=== PATIENT | female | born 1990 | race Caucasian/White ===

== ENCOUNTER 2017-09-01 19:43 | Emergency (ER) | payer OTHER ==
[~2017-09-01] VITALS: Ht 162.6 cm; Wt 70.5 kg
[~2017-09-01 19:43] MED LIST: ACET50TA PO; IBUP60TA PO; VITAPRTA PO
[2017-09-01] MEDS ORDERED: NORCOTAB PO (21:10)
[2017-09-01] MEDS ORDERED: AUGM875T28 PO (21:10)
[2017-09-01] MEDS ORDERED: AUGMENTIN 875 MG TAB PO ONE (21:15)
[2017-09-01] MEDS ORDERED: NORCO, ANEXSIA 5/325MG TABLET (HYDROcodone/ACETAMINOPHEN) PO ONE (21:15)
[2017-09-01 21:32] VITALS: BP 118/54
== END 2017-09-01 21:34 | disposition home or self-care (01) ==
LOC: M ED 19:43
DX: K04.7 Periapical abscess without sinus (principal); F17.210 Nicotine dependence, cigarettes, uncomplicated; Z86.59 Personal history of other mental and behavioral disorders

== ENCOUNTER → 2022-06-14 | Outpatient (CLI) | payer OTHER ==
[~2022-06-14] MED LIST changes: -ACET50TA PO; +AUGM875T28 PO; +HYDR-3715 PO; +IBUP600T42 PO; -IBUP60TA PO; +MAPA500T2 PO
== END ==
LOC: M LAB 17:28
PROVIDERS: ATTEND Specialist
DX: N92.6 Irregular menstruation, unspecified (principal)

== ENCOUNTER → 2022-06-17 | Outpatient (CLI) | payer OTHER | LOC: M LAB 06:14 | PROVIDERS: ATTEND Specialist | DX: N92.6 Irregular menstruation, unspecified (principal) ==

== ENCOUNTER → 2022-06-21 | Outpatient (CLI) | payer OTHER | LOC: M WHC 12:23 | PROVIDERS: ATTEND Obstetrics & Gynecology | DX: Z34.91 Encounter for supervision of normal pregnancy, unspecified, first trimester (principal) ==

== ENCOUNTER → 2022-06-28 | Outpatient (CLI) | payer OTHER ==
[~2022-06-28] MED LIST changes: +IBUP-1022 PO; +OXYC1TAB23 PO
== END ==
LOC: M PLAIMG 14:33
PROVIDERS: ATTEND Specialist
DX: M79.5 Residual foreign body in soft tissue (principal)

== ENCOUNTER → 2022-07-01 | Outpatient (CLI) | payer OTHER | LOC: M LABSMTC 11:07 | PROVIDERS: ATTEND Anesthesiology | DX: Z01.812 Encounter for preprocedural laboratory examination (principal) ==

== ENCOUNTER → 2022-07-02 | Day surgery (SDC) | payer OTHER ==
[~2022-07-02] VITALS: Ht 162.6 cm; Wt 71.8 kg
[2022-07-02 15:49] VITALS: BP 126/66
[2022-07-02 16:00] LABS: HEMATOCRIT 37.6 % (36.0-47.0); HEMOGLOBIN 12.9 g/dl (12.0-15.5); MEAN CORPUSCULAR HGB CONC 34.3 g/dl (32.0-36.5); MEAN CORPUSCULAR VOLUME 93.3 fl (80.0-96.0); PLATELET COUNT, AUTOMATED 193 10^3/uL (150-450); RED BLOOD COUNT 4.03 10^6/uL (4.00-5.40); WHITE BLOOD COUNT 13.5 10^3/uL (4.0-10.0)
== END | disposition home or self-care (01) ==
LOC: M SDC 15:21
PROVIDERS: ATTEND Specialist
DX: O02.1 Missed abortion (principal); Z53.8 Procedure and treatment not carried out for other reasons

== ENCOUNTER → 2022-07-08 | Outpatient (CLI) | payer OTHER | LOC: M LABSMTC 09:16 | PROVIDERS: ATTEND Anesthesiology | DX: Z11.52 Encounter for screening for COVID-19 (principal) ==

== ENCOUNTER 2022-07-11 07:37 | Day surgery (SDC) | payer OTHER ==
[~2022-07-11] VITALS: Ht 162.6 cm; Wt 72.8 kg
[~2022-07-11 07:37] MED LIST changes: +BUPIVACAINE HCL 0.25% 10ML VIAL As Ordered ONE; +KETOROLAC 60MG 2ML VIAL As Ordered ONE; +LIDOCAINE 2% 100MG/5ML SDV (FOR ANES.) As Ordered ONE; +METOCLOPRAMIDE INJ 10MG/2ML VIAL (J2765 PER 1) As Ordered ONE; +MIDAZOLAM INJ 2MG/2ML VIAL (J2250 PER 1MG) As Ordered ONE; +ONDANSETRON 4MG 2ML VIAL As Ordered ONE; +ROCURONIUM BROMIDE 50 MG/5 ML VIAL As Ordered ONE; +dexameTHASONE 4 MG/ML 1ML VIAL (J1100 PER 1MG) As Ordered ONE; +fentaNYL 100 MCG/2 ML INJECTION As Ordered ONE; +propofoL 200 MG/20 ML VIAL As Ordered ONE
[2022-07-11] MEDS ORDERED: LR 1,000 ML IV SCH ×3 (08:05→09:40)
[2022-07-11] MEDS ORDERED: SUGAMMADEX SODIUM 500 MG/5 ML VIAL (BRIDION) As Ordered ONE (09:25)
[2022-07-11] MEDS ORDERED: MORPHINE 2 MG/ML 1ML VIAL IV PRN (09:30)
[2022-07-11] MEDS ORDERED: fentaNYL 100 MCG/2 ML INJECTION IV PRN (09:30)
[2022-07-11] MEDS ORDERED: ONDANSETRON 4MG 2ML VIAL IV PRN (09:30)
[2022-07-11] MEDS ORDERED: oxyCODONE 5MG TAB PO PRN (09:30)
[2022-07-11] MEDS ORDERED: PERCOCET 5MG/325MG TAB PO PRN (09:40)
[2022-07-11 10:05] VITALS: BP 117/66
== END 2022-07-11 10:34 | disposition home or self-care (01) ==
LOC: M SDC 07:37
PROVIDERS: ATTEND Specialist
DX: O02.1 Missed abortion (principal); T83.32XA Displacement of intrauterine contraceptive device, initial encounter; Z3A.01 Less than 8 weeks gestation of pregnancy; F17.200 Nicotine dependence, unspecified, uncomplicated
CPT/HCPCS: 49320; 59820; 88305; J1100; J1885; J2250; J2405; J2765; J3010

== ENCOUNTER → 2024-12-02 | Outpatient (CLI) | payer OTHER ==
[~2024-12-02] MED LIST changes: -BUPIVACAINE HCL 0.25% 10ML VIAL As Ordered ONE; -KETOROLAC 60MG 2ML VIAL As Ordered ONE; -LIDOCAINE 2% 100MG/5ML SDV (FOR ANES.) As Ordered ONE; -METOCLOPRAMIDE INJ 10MG/2ML VIAL (J2765 PER 1) As Ordered ONE; -MIDAZOLAM INJ 2MG/2ML VIAL (J2250 PER 1MG) As Ordered ONE; -ONDANSETRON 4MG 2ML VIAL As Ordered ONE; -ROCURONIUM BROMIDE 50 MG/5 ML VIAL As Ordered ONE; -dexameTHASONE 4 MG/ML 1ML VIAL (J1100 PER 1MG) As Ordered ONE; -fentaNYL 100 MCG/2 ML INJECTION As Ordered ONE; -propofoL 200 MG/20 ML VIAL As Ordered ONE
[2024-12-02 11:32] LABS: HEMATOCRIT 36.3 % (36.0-47.0); HEMOGLOBIN 12.3 g/dl (12.0-15.5); MEAN CORPUSCULAR HEMOGLOBIN 31.1 pg (27.0-33.0); MEAN CORPUSCULAR HGB CONC 33.9 g/dl (32.0-36.5); MEAN CORPUSCULAR VOLUME 91.9 fl (80.0-96.0); PLATELET COUNT, AUTOMATED 229 10^3/uL (150-450); RED BLOOD COUNT 3.95 10^6/uL (4.00-5.40); WHITE BLOOD COUNT 7.8 10^3/uL (4.0-10.0)
[2024-12-02 12:26] LABS: HIV 1&2 SCREEN NEGATIVE (NEGATIVE)
[2024-12-02 12:34] LABS: HEPATITIS C VIRUS ABY INDEX 0.02 INDEX (<0.8)
[2024-12-02 12:51] LABS: GC DNA AMPLIFICATION NEGATIVE (NEGATIVE)
== END ==
LOC: M LAB 08:24
PROVIDERS: ATTEND Specialist
DX: Z34.81 Encounter for supervision of other normal pregnancy, first trimester (principal)

== ENCOUNTER → 2024-12-17 | Outpatient (CLI) | payer OTHER | LOC: M LAB 07:31 | PROVIDERS: ATTEND Nurse Practitioner Family | DX: Z34.90 Encounter for supervision of normal pregnancy, unspecified, unspecified trimester (principal) ==

== ENCOUNTER → 2025-01-28 | Outpatient (CLI) | payer OTHER | LOC: M WHC 08:26 | PROVIDERS: ATTEND Nurse Practitioner Family | DX: Z34.82 Encounter for supervision of other normal pregnancy, second trimester (principal) ==

== ENCOUNTER → 2025-02-02 | Outpatient (CLI) | payer OTHER ==
[2025-02-02 09:18] LABS: TOTAL PROTEIN,RANDOM URINE 23.5 MG/DL (0.0-14.0)
[2025-02-02 09:40] LABS: CREATININE,RANDOM URINE 247.8 MG/DL
[2025-02-02 09:45] LABS: HEMATOCRIT 32.7 % (36.0-47.0); HEMOGLOBIN 11.1 g/dl (12.0-15.5); MEAN CORPUSCULAR HEMOGLOBIN 32.3 pg (27.0-33.0); MEAN CORPUSCULAR HGB CONC 33.9 g/dl (32.0-36.5); MEAN CORPUSCULAR VOLUME 95.1 fl (80.0-96.0); PLATELET COUNT, AUTOMATED 184 10^3/uL (150-450); RED BLOOD COUNT 3.44 10^6/uL (4.00-5.40); WHITE BLOOD COUNT 8.3 10^3/uL (4.0-10.0)
[2025-02-02 10:16] LABS: URIC ACID 3.6 MG/DL (3.1-7.8)
[2025-02-02 10:19] LABS: LDH LACTATE DEHYDROGENASE 138 U/L (120-246)
[2025-02-02 10:20] LABS: ALT/SGPT 22 U/L (7.0-40); AST/SGOT 16 U/L (<34); BILIRUBIN,TOTAL 0.4 MG/DL (0.3-1.2); CREATININE FOR GFR 0.56 MG/DL (0.55-1.30); GLOMERULAR FILTRATION RATE > 60.0 (>60)
== END ==
LOC: M LAB 08:12
PROVIDERS: ATTEND Nurse Practitioner Family
DX: O09.522 Supervision of elderly multigravida, second trimester (principal)

== ENCOUNTER → 2025-02-18 | Outpatient (CLI) | payer OTHER | LOC: M WHC 06:34 | PROVIDERS: ATTEND Nurse Practitioner Family | DX: O32.2XX0 Maternal care for transverse and oblique lie, not applicable or unspecified (principal); Z3A.23 23 weeks gestation of pregnancy ==

== ENCOUNTER → 2025-03-21 | Outpatient (CLI) | payer OTHER ==
[2025-03-21 17:56] LABS: GLUCOSE CHALLENGE TEST 1 HOUR 79 MG/DL (LESS THAN 140)
[2025-03-21 17:59] LABS: HEMATOCRIT 33.1 % (36.0-47.0); HEMOGLOBIN 11.1 g/dl (12.0-15.5); MEAN CORPUSCULAR HEMOGLOBIN 31.9 pg (27.0-33.0); MEAN CORPUSCULAR HGB CONC 33.5 g/dl (32.0-36.5); MEAN CORPUSCULAR VOLUME 95.1 fl (80.0-96.0); PLATELET COUNT, AUTOMATED 172 10^3/uL (150-450); RED BLOOD COUNT 3.48 10^6/uL (4.00-5.40); WHITE BLOOD COUNT 9.4 10^3/uL (4.0-10.0)
[2025-03-21 18:24] LABS: HIV 1&2 SCREEN NEGATIVE (NEGATIVE)
[2025-03-21 18:32] LABS: HEPATITIS C VIRUS ABY INDEX 0.05 INDEX (<0.8)
[2025-03-21 20:21] LABS: Trichomonas vaginalis (AMP) NOT DETECTED (NEGATIVE)
[2025-03-21 20:45] LABS: GC DNA AMPLIFICATION NEGATIVE (NEGATIVE)
== END ==
LOC: M PLALAB 14:24
PROVIDERS: ATTEND Advanced Practice Midwife
DX: O09.522 Supervision of elderly multigravida, second trimester (principal); Z3A.00 Weeks of gestation of pregnancy not specified

== ENCOUNTER → 2025-05-26 | Outpatient (REF) | payer OTHER ==
[~2025-05-26] MED LIST changes: -IBUP-1022 PO; +MULTTAB20 PO; +TUMS750C5 PO; +VALT500T PO
== END ==
LOC: M PLALAB 07:39
PROVIDERS: ATTEND Nurse Practitioner Family
DX: Z36.85 Encounter for antenatal screening for Streptococcus B (principal); Z3A.36 36 weeks gestation of pregnancy

== ENCOUNTER 2025-06-07 07:26 | Inpatient (IN) | payer OTHER ==
[~2025-06-07] VITALS: Ht 162.6 cm; Wt 91.4 kg
[2025-06-07] VITALS (7 sets, daily range): BP systolic 105–145; BP diastolic 57–98; O2SAT 95–100
[~2025-06-07 07:26] MED LIST changes: +IBUP-1022 PO; -MULTTAB20 PO; -TUMS750C5 PO; -VALT500T PO
[2025-06-07] MEDS ORDERED: CARBOPROST TROMETHAMINE 250 MCG/ML AMP IM PRN (07:40)
[2025-06-07] MEDS ORDERED: LR 1,000 ML IV SCH (07:40)
[2025-06-07] MEDS ORDERED: LIDOCAINE 1% MDV 20 ML VIAL INFIL PRN (07:40)
[2025-06-07] MEDS ORDERED: OXYTOCIN DRIP 30 UNITS in IV 1 EA IV PRN (07:40)
[2025-06-07] MEDS ORDERED: TRANEXAMIC ACID INJection 1,000 MG in NS 100 ML IV PRN (07:40)
[2025-06-07] MEDS: LACTATED RINGER'S 1000 ML IV STA (07:40)
[2025-06-07] MEDS ORDERED: OXYTOCIN INJ 10UNITS/ML 1ML VIAL IM PRN (07:40)
[2025-06-07] MEDS ORDERED: OXYTOCIN 30UNITS IN 0.9% NaCl 500ML IV BAG As Ordered ONE (07:42)
[2025-06-07] MEDS ORDERED: TUMS750C5 PO (08:16)
[2025-06-07] MEDS ORDERED: MULTTAB20 PO (08:16)
[2025-06-07] MEDS ORDERED: HOME MED LIST COMPLETE! XX SCH (08:20)
[2025-06-07] MEDS: METHYLERGONOVINE MALEATE 0.2 MG/ML 1 ML VIAL IM PRN (08:23)
[2025-06-07] MEDS ORDERED: VALT500T PO (08:34)
[2025-06-07 08:50] LABS: PLATELET COUNT, AUTOMATED 124 10^3/uL (150-450)
[2025-06-07] MEDS ORDERED: IBUPROFEN 800 MG TAB PO PRN (08:50)
[2025-06-07] MEDS ORDERED: DIBUCAINE 1% OINTMENT 30 GM TOP PRN (08:50)
[2025-06-07] MEDS ORDERED: ANUSOL HC CREAM 30 GM TOP PRN (08:50)
[2025-06-07] MEDS ORDERED: ACETAMINOPHEN 500 MG TAB PO PRN (08:50)
[2025-06-07] MEDS ORDERED: ACETAMINOPHEN 325 MG TAB PO PRN (08:50)
[2025-06-07] MEDS ORDERED: MOM 30 ML SUSPENSION UDC PO PRN (08:50)
[2025-06-07] MEDS ORDERED: DOCUSATE SODIUM 100 MG CAPSULE PO PRN (08:50)
[2025-06-07] MEDS: PRENATAL VITAMINS CHEWABLE TABLET PO SCH (09:00)
[2025-06-07 09:45] LABS: HIV 1&2 SCREEN NEGATIVE (NEGATIVE)
[2025-06-07 09:53] LABS: HEPATITIS C VIRUS ABY INDEX < 0.02 INDEX (<0.8)
[2025-06-07] MEDS: IBUPROFEN 600 MG TAB PO PRN (17:38)
[2025-06-08 05:42] VITALS: BP 112/56; O2SAT 97
[2025-06-08] MEDS: RHOGAM 300MCG (1500IU) INJ IM SCH (07:24)
[2025-06-09] MEDS ORDERED: MEASLES,MUMPS,RUBELLA VACCINE INJ (MMR-II) SC.IMMUN ONE (09:00)
== END 2025-06-08 13:30 | disposition home or self-care (01) | DRG 560 ==
LOC: M LDO 07:26 → M LDI 07:40 → M OBS 11:10
PROVIDERS: ADMIT Advanced Practice Midwife; ATTEND Advanced Practice Midwife
PROC: 10E0XZZ Delivery of Products of Conception, External Approach (ICD-10-PCS; principal; 2025-06-07)
DX: O69.1XX0 Labor and delivery complicated by cord around neck, with compression, not applicable or unspecified (principal); O98.52 Other viral diseases complicating childbirth; Z37.0 Single live birth; Z3A.38 38 weeks gestation of pregnancy; B00.9 Herpesviral infection, unspecified; Z14.1 Cystic fibrosis carrier; Z87.891 Personal history of nicotine dependence; O09.523 Supervision of elderly multigravida, third trimester

== ENCOUNTER → 2025-09-02 | Outpatient (REF) | payer OTHER ==
[~2025-09-02] MED LIST changes: -IBUP-1022 PO; +MULTTAB20 PO; +TUMS750C5 PO; +VALT500T PO
== END ==
LOC: M LAB REF 17:09
PROVIDERS: ATTEND Physician Assistant
DX: B34.9 Viral infection, unspecified (principal)